=== PATIENT | male | born 1945 | race Caucasian/White ===

== ENCOUNTER 2016-09-14 08:57 | Outpatient (CLI) | payer MEDICARE | END 2016-09-14 08:58 | disposition home or self-care (01) | DX: M79.676 Pain in unspecified toe(s) (principal) ==

== ENCOUNTER 2017-03-01 15:23 | Outpatient (CLI) | payer MEDICARE ==
--- NOTE | 2017-03-02 15:34 | Ultrasound Report ---
BILATERAL LOWER EXTREMITY ARTERIAL DUPLEX: 03/01/2017 CLINICAL INDICATION: Peripheral vascular disease. TECHNIQUE: Real-time sonographic vascular imaging was performed by the switch cleaner through the lower extremities utilizing both color-flow and Doppler spectral analysis. Multiple sales representative consultant static images were saved for review. RIGHT SIDE SITE PSV WAVEFORM STEN CLAIMS ADJUSTOR 109 triphasic PSFA 104 biphasic MSFA 85 biphasic DSFA 82 biphasic PFA 73 biphasic POP 103 biphasic ANGEL 51 biphasic STATISTICAL MACHINE MECHANIC 71 biphasic PER 52 biphasic DPA 54 biphasic LEFT SIDE SITE PSV WAVEFORM STEN CLAIMS ADJUSTOR 98 biphasic PSFA 89 biphasic MSFA 89 biphasic DSFA 87 biphasic PFA 81 biphasic POP 75 biphasic ANGEL 50 biphasic STATISTICAL MACHINE MECHANIC 70 biphasic PER 60 biphasic DPA 49 biphasic FINDINGS RIGHT LEG: Waveforms are predominantly biphasic. There is no evidence of a focal velocity increase to suggest a hemodynamically significant stenosis. LEFT LEG: Waveforms are predominantly biphasic. There is no evidence of a focal velocity increase to suggest a hemodynamically significant arterial stenosis. IMPRESSION: NO EVIDENCE OF A HEMODYNAMICALLY SIGNIFICANT ARTERIAL STENOSIS IN EITHER LEG. MTDD
== END 2017-03-01 15:24 | disposition home or self-care (01) ==
LOC: DI 15:23
PROVIDERS: ATTEND Family Medicine
DX: I73.9 Peripheral vascular disease, unspecified (principal)
CPT/HCPCS: 72050; 93925

== ENCOUNTER 2017-03-01 15:29 | Outpatient (CLI) | payer MEDICARE ==
--- NOTE | 2017-03-02 09:42 | XRAY Report ---
COMPLETE CERVICAL SPINE: 03/01/2017 CLINICAL INDICATION: Left-sided pain. FINDINGS: AP, lateral, oblique, and odontoid views of the cervical spine demonstrate severe degenera tive disk and facet disease, with near complete osseous fusion of the C5-6 disk space and bulky osteo phyte at C6-7. There is left worse than right osseous neural foraminal narrowing, worst at C5-6. Ther e is no evidence of fracture or subluxation. The prevertebral soft tissues are unremarkable. IMPRESSION: DEGENERATIVE CHANGES, WITH LEFT WORSE THAN RIGHT OSSEOUS NEURAL FORAMINAL NARROWING. JOB #: [id number] EXT JOB #:[id number]
--- NOTE | 2017-03-02 11:15 | XRAY Report ---
THREE VIEW LEFT SHOULDER: 03/01/2017 CLINICAL INDICATION: Pain. FINDINGS: Internal and external rotational views and a scapular Y view of the left shoulder demonstr ate no evidence of fracture or dislocation. Mild degenerative changes are present. No radiopaque fore ign body is seen in the soft tissues. IMPRESSION: MILD DEGENERATIVE CHANGES. JOB #: [id number] EXT JOB #:[id number]
== END 2017-03-01 15:30 | disposition home or self-care (01) ==
LOC: DI 15:29
PROVIDERS: ATTEND Family Medicine
DX: M50.30 Other cervical disc degeneration, unspecified cervical region (principal); M47.892 Other spondylosis, cervical region; M19.012 Primary osteoarthritis, left shoulder
CPT/HCPCS: 72050

== ENCOUNTER 2018-03-24 14:39 | Emergency (ER) | payer MEDICARE ==
[2018-03-24 15:43] LABS: BASOPHILS # (AUTO) 0.1 10^3/uL (0.0-0.1); BASOPHILS % (AUTO) 1.1 %; EOSINOPHILS # (AUTO) 0.1 10^3/uL (0.0-0.7); EOSINOPHILS % (AUTO) 1.1 %; HGB - HEMOGLOBIN 15.3 g/dL (14.0-18.0); LYMPHOCYTES # (AUTO) 1.6 10^3/uL (1.5-3.5); LYMPHOCYTES % (AUTO) 29.1 %; MEAN CORPUSCULAR HEMOGLOBIN 29.5 pg (27.0-31.0); MEAN CORPUSCULAR VOLUME 86.9 fL (80.0-94.0); MEAN PLATELET VOLUME 10.5 fL (7.4-11.4); MONOCYTES # (AUTO) 0.5 10^3/uL (0.0-1.0); MONOCYTES % (AUTO) 8.3 %; NEUTROPHILS # (AUTO) 3.3 10^3/uL (1.5-6.6); NEUTROPHILS % (AUTO) 60.4 %; PLT - PLATELET COUNT 177 10^3/uL (130-450); RED BLOOD COUNT 5.17 10^6/uL (4.70-6.10); RED CELL DISTRIBUTION WIDTH 14.1 % (12.0-15.0); WHITE BLOOD COUNT 5.4 x10^3/uL (4.8-10.8)
[2018-03-24 16:02] LABS: ALBUMIN 4.2 g/dL (3.2-5.5); ALBUMIN/GLOBULIN RATIO 1.7 (1.0-2.2); BILIRUBIN,TOTAL 0.5 mg/dL (0.2-1.0); CALCIUM 9.1 mg/dL (8.5-10.3); TOTAL PROTEIN 6.7 g/dL (6.7-8.2)
--- NOTE | 2018-03-24 16:30 | ED Physician Documentation ---
PD HPI GI BLEED - Stated complaint Stated Complaint: BLOODY STOOL - Chief complaint Chief Complaint: Abd Pain - History obtained from History obtained from: Patient, Family (spouse) - History of Present Illness Timing - onset: Yesterday Timing - details: Still present Associated symptoms: Maroon stool Contributing factors: Aspirin use Similar symptoms before: Has not had sx before - Additional information Additional information: The patient is a 73-year-old male who presents with history of bloody stool that he first noticed yesterday, and has persisted today. Blood is mixed in with the stool. He denies abdominal pain, nausea or vomiting. He denies history of similar symptoms in the past. He does report that 3 years ago colonoscopy was attempted but was not able to be completed because of a "kinked lower colon." Family history is significant for colon cancer in his father at age 59. Review of Systems Constitutional: denies: Fever, Fatigue Cardiac: denies: Chest pain / pressure Respiratory: denies: Dyspnea, Cough GI: reports: Bloody / black stool. denies: Abdominal Pain, Nausea, Vomiting, Diarrhea : denies: Dysuria Skin: denies: Rash Musculoskeletal: denies: Back pain Neurologic: denies: Headache PD PAST MEDICAL HISTORY - Past Medical History Past Medical History: Yes Cardiovascular: Hypertension, High cholesterol, Arrhythmia Respiratory: None Endocrine/Autoimmune: None GI: GERD, Colon polyps : Benign prostate hypertrophy HEENT: Glaucoma, Other Psych: Depression Musculoskeletal: None Derm: None, Other - Past Surgical History Ortho: Other HEENT: Tonsil/Adenoidectomy, Other Derm: Skin cancer surgery - Present Medications Home Medications: Ambulatory Orders Medication Instructions Recorded Confirmed Bimatoprost [Lumigan] 1 drop EACHEYE DAILY 05/05/16 05/05/16 Dorzolamide 2% Ophth Drops 1 drops RIGHTEYE BID 05/05/16 05/05/16 [Trusopt 2% Ophth Drops] Finasteride 5 mg PO DAILY 05/05/16 05/05/16 Tamsulosin [Flomax] 0.4 mg PO DAILY 05/05/16 05/05/16 Gemfibrozil [Lopid] 600 mg PO 03/24/18 busPIRone [Buspar] 7.5 mg PO BID 03/24/18 03/24/18 - Allergies Allergies/Adverse Reactions: Allergies Allergy/AdvReac Type Severity Reaction Status Date / Time gluten Allergy Unknown Verified 03/24/18 14:45 succinylcholine chloride * Allergy Unknown Verified 03/24/18 14:45 [From Anectine] codeine AdvReac Itching Verified 03/24/18 14:45 - Social History Does the pt smoke?: No Smoking Status: Never smoker Does the pt drink ETOH?: Yes ETOH Use: Wine Does the pt have substance abuse?: No - Immunizations Immunizations are current?: Yes - POLST Patient has POLST: No PD ED PE NORMAL - Vitals Vital signs reviewed: Yes (hypertensive) - General General: Alert and oriented X 3, Well developed/nourished - HEENT HEENT: Atraumatic, Moist mucous membranes - Neck Neck: No adenopathy, No JVD - Cardiac Cardiac: RRR - Respiratory Respiratory: No respiratory distress, Clear bilaterally - Abdomen Abdomen: Normal bowel sounds, Soft, Non tender - Rectal Rectal: Other (Maroon, heme-positive stool.) - Back Back: No CVA TTP - Derm Derm: No rash - Extremities Extremities: No edema, No calf tenderness / cord - Neuro Neuro: Alert and oriented X 3, No motor deficit, Normal speech Results - Vitals Vitals: Vital Signs - 24 hr 03/24/18 03/24/18 14:42 16:53 Temperature 36.7 C 36.6 C Heart Rate 47 L 52 L Respiratory 16 18 Rate Blood Pressure 186/81 H 174/78 H O2 Saturation 99 99 Oxygen O2 Source Room air - Labs Labs: Laboratory Tests 03/24/18 03/24/18 15:32 15:32 WBC 5.4 RBC 5.17 Hgb 15.3 Hct 44.9 MCV 86.9 MCH 29.5 MCHC 34.0 RDW 14.1 Plt Count 177 MPV 10.5 Neut # (Auto) 3.3 Lymph # (Auto) 1.6 [place] # (Auto) 0.5 Eos # (Auto) 0.1 Baso # (Auto) 0.1 Absolute Nucleated RBC 0.00 Nucleated RBC % 0.1 Sodium 139 Potassium 3.8 Chloride 103 Carbon Dioxide 26 Anion Gap 10.0 BUN 19 Creatinine 1.0 Estimated GFR (MDRD) 73 L Glucose 103 H Calcium 9.1 Total Bilirubin 0.5 AST 19 ALT 18 Alkaline Phosphatase 53 Total Protein 6.7 Albumin 4.2 Globulin 2.5 Albumin/Globulin Ratio 1.7 Lipase 135 H PD MEDICAL DECISION MAKING - ED course Complexity details: reviewed results, re-evaluated patient, considered differential, d/w patient, d/w family, d/w fashion consultant sales ED course: The patient's presentation is significant for gastrointestinal hemorrhage. He is otherwise asymptomatic, and his hemoglobin and hematocrit are normal at 15.3 and 44.9. Platelet count is normal at 177,000. I discussed his condition with Dr. Anders, who agrees with urgent outpatient follow-up. While still in the emergency department, the patient's arrange for outpatient clinic follow-up appointment for next Tuesday. I discussed with the patient and his potentially worrisome signs or symptoms that should prompt reevaluation in the emergency department. He will discontinue the one baby aspirin daily that he has been taking. Departure - Departure Disposition: Home, Self Care Clinical Impression: GI hemorrhage Qualifiers: GI bleed type/associated pathology: melena Qualified Code(s): K92.1 - Melena Condition: Stable Instructions: ED Hematochezia Stable Follow-Up: [facility] Surgical Services [Provider Group] Comments: Avoid taking aspirin or any other blood thinner medication. Follow-up at the general surgery clinic on Tuesday. Call today to schedule an appointment. Return to the emergency department if you develop increasing rectal bleeding, increasing abdominal pain, lightheadedness, or otherwise worsening symptoms. Discharge Date/Time: 03/24/18 16:52
[2018-03-24 16:56] VITALS: BP 174/78
== END 2018-03-24 16:52 | disposition home or self-care (01) ==
LOC: ED 14:39
DX: K92.1 Melena (principal); I10 Essential (primary) hypertension; E78.00 Pure hypercholesterolemia, unspecified; Z80.0 Family history of malignant neoplasm of digestive organs
CPT/HCPCS: 36415; 80053; 83690; 85025; 99283; 99284

== ENCOUNTER 2018-04-06 10:08 | Day surgery (SDC) | payer MEDICARE ==
[2018-04-06] MEDS ORDERED: LACTATED RINGERS 1,000 ML IV ONE (10:41)
[2018-04-06] MEDS ORDERED: fentaNYL 250 MCG/5 ML VIAL IVP ONE (12:27)
[2018-04-06] MEDS ORDERED: MIDAZOLAM 2 MG/2 ML VIAL IVP ONE (12:27)
[2018-04-06 13:31] VITALS: BP 128/69
== END 2018-04-06 10:09 | disposition home or self-care (01) ==
LOC: SDS 10:08
PROVIDERS: ATTEND Internal Medicine Gastroenterology
PROC: 0DJD8ZZ Inspection of Lower Intestinal Tract, Via Natural or Artificial Opening Endoscopic (ICD-10-PCS; principal; 2018-04-06 11:15)
DX: K62.5 Hemorrhage of anus and rectum (principal); Z80.0 Family history of malignant neoplasm of digestive organs; K57.30 Diverticulosis of large intestine without perforation or abscess without bleeding; Z86.010 Personal history of colon polyps; F41.8 Other specified anxiety disorders; I10 Essential (primary) hypertension; E78.5 Hyperlipidemia, unspecified; K21.9 Gastro-esophageal reflux disease without esophagitis; H40.9 Unspecified glaucoma; K57.90 Diverticulosis of intestine, part unspecified, without perforation or abscess without bleeding; N40.1 Benign prostatic hyperplasia with lower urinary tract symptoms; Z79.82 Long term (current) use of aspirin; Z87.11 Personal history of peptic ulcer disease
CPT/HCPCS: 45378; 93005; J3010; J7120

== ENCOUNTER 2018-08-25 12:08 | Outpatient (CLI) | payer MEDICARE ==
--- NOTE | 2018-08-25 19:57 | MRI Report ---
Reason: RADICULOPATHY,CERVICAL REGION Procedure Date: 08/25/2018 Accession Number: [id number] / [id number] Procedure: MRI - Cervical Spine W/O CPT Code: FULL RESULT: EXAM: MRI CERVICAL SPINE WITHOUT CONTRAST EXAM DATE: 08/25/2018 12:41 PM. CLINICAL HISTORY: RADICULOPATHY,CERVICAL REGION. COMPARISONS: Cervical spine radiographs 03/01/2017. TECHNIQUE: Multiplanar, multisequence T1-weighted and fluid-sensitive sequences of the cervical spine without contrast. Other: None. FINDINGS: Neurologic Structures: The visualized posterior fossa structures are unremarkable. No signal abnormality in the visualized spinal cord. Alignment: Grade 1 anterolisthesis of C4 on C5 measures 2 mm. Anterolisthesis of C7 on T1 measures 3.5 mm. Bone Marrow: No fractures. No osseous lesions. There is Modic type I endplate degenerative change at C6-C7. Interspace Levels/Facets: C1-C2: Unremarkable. C2-C3: Severe left facet arthropathy causes mild left foraminal stenosis. No disk bulge or protrusion. No spinal canal stenosis. C3-C4: Shallow broad-based disk-osteophyte complex and severe left facet arthropathy causes moderate left and mild right foraminal stenosis. Partial effacement of the ventral CSF without deforming the cord. C4-C5: Shallow broad-based disk-osteophyte complex with severe right and mild left facet arthropathy results and partial effacement of the ventral CSF and mild bilateral foraminal stenosis. C5-C6: There is solid osseous bridging across the disk space. Broad-based disk-osteophyte complex effaces the ventral CSF and flattens the cord. The dorsal CSF space remains visible. Mild bilateral foraminal stenosis. C6-C7: Mild intervertebral disk height loss. Shallow broad-based disk-osteophyte complex causes mild spinal canal and bilateral foraminal stenosis. C7-T1: Mild intervertebral disk height loss. Shallow broad-based disk-osteophyte complex with severe bilateral facet arthropathy and grade 1 anterolisthesis results in mild spinal canal and bilateral foraminal stenosis. Musculature: Normal. No edema or fatty atrophy. Other: The paravertebral and prevertebral soft tissues are normal. IMPRESSION: 1. At C5-C6, a broad-based disk-osteophyte complex causes moderate spinal canal and mild bilateral foraminal stenosis, with disk-osteophyte effacing the ventral CSF and flattening the cord. 2. Mild spinal canal and bilateral foraminal stenosis at C4-C5, C6-C7, and C7-T1 secondary to shallow broad-based disk-osteophyte complexes. 3. Severe left facet arthropathy at C2-C3 causes mild left foraminal stenosis. 4. Severe right facet arthropathy at C4-C5. RADIA
== END 2018-08-25 12:09 | disposition home or self-care (01) ==
LOC: DI 12:08
PROVIDERS: ATTEND Family Medicine
DX: M54.12 Radiculopathy, cervical region (principal); M48.02 Spinal stenosis, cervical region; M25.78 Osteophyte, vertebrae
CPT/HCPCS: 72141

== ENCOUNTER 2019-07-08 12:37 | Outpatient (CLI) | payer MEDICARE | END 2019-07-08 12:38 | disposition critical access hospital (66) | LOC: EMS 12:37 | PROVIDERS: ATTEND Surgery | DX: R55 Syncope and collapse (principal) | CPT/HCPCS: A0425; A0427 ==

== ENCOUNTER 2019-07-08 12:52 | Emergency (ER) | payer MEDICARE ==
[2019-07-08] MEDS ORDERED: SODIUM CHLORIDE 0.9% 1,000 ML IV ONE (12:58)
--- NOTE | 2019-07-08 13:02 | ED Physician Documentation ---
PD HPI SYNCOPE - Stated complaint Stated Complaint: NEAR SYNCOPE - History obtained from History obtained from: Patient (74-year-old gentleman with history of low pulse but no history of syncope. Had it worked up a couple of years ago by construction foreman who felt no pacemaker was necessary. Today about 40 minutes after taking 50 mg of sildenafil he took a hot shower and then nearly passed out. He injured his left ankle. No other injuries. He did not have complete syncope. There is no associated chest pain, shortness of breath, or headache. He feels fine now.) Review of Systems Ten Systems: 10 systems reviewed and negative Constitutional: reports: Reviewed and negative Cardiac: denies: Chest pain / pressure, Palpitations, Pedal edema Respiratory: denies: Dyspnea, Cough, Hemoptysis PD PAST MEDICAL HISTORY - Past Medical History Cardiovascular: Hypertension, High cholesterol, Arrhythmia Respiratory: None Endocrine/Autoimmune: None GI: GERD, Colon polyps : Benign prostate hypertrophy HEENT: Glaucoma, Other Psych: Depression Musculoskeletal: None Derm: None, Other - Past Surgical History Ortho: Other HEENT: Tonsil/Adenoidectomy, Other Derm: Skin cancer surgery - Present Medications Home Medications: Ambulatory Orders Medication Instructions Recorded Confirmed Bimatoprost [Lumigan] 1 drop EACHEYE DAILY 05/05/16 05/05/16 Dorzolamide 2% Ophth Drops 1 drops RIGHTEYE BID 05/05/16 05/05/16 [Trusopt 2% Ophth Drops] Finasteride 5 mg PO DAILY 05/05/16 05/05/16 Tamsulosin [Flomax] 0.4 mg PO DAILY 05/05/16 05/05/16 Gemfibrozil [Lopid] 600 mg PO 03/24/18 busPIRone [Buspar] 7.5 mg PO BID 03/24/18 03/24/18 Aspirin [Adult Aspirin Regimen] 1 DAILY 04/05/18 - Allergies Allergies/Adverse Reactions: Allergies Allergy/AdvReac Type Severity Reaction Status Date / Time gluten Allergy Unknown Verified 07/08/19 12:57 succinylcholine chloride * Allergy Unknown Verified 07/08/19 12:57 [From Anectine] codeine AdvReac Itching Verified 07/08/19 12:57 - Social History Does the pt smoke?: No Smoking Status: Never smoker Does the pt drink ETOH?: Yes Does the pt have substance abuse?: No - Immunizations Immunizations are current?: Yes - POLST Patient has POLST: No PD ED PE NORMAL - Vitals Vital signs reviewed: Yes - General General: Alert and oriented X 3, No acute distress - HEENT HEENT: PERRL, EOMI - Neck Neck: Supple, no meningeal sign, No bony TTP - Cardiac Cardiac: RRR, No murmur - Respiratory Respiratory: No respiratory distress, Clear bilaterally - Abdomen Abdomen: Non tender - Back Back: No CVA TTP, No spinal TTP - Derm Derm: Normal color, Warm and dry - Extremities Extremities: Other (There is an abrasion over the left fifth metatarsal laterally, there is no corresponding bony pain or limited range of motion there.) - Neuro Neuro: Alert and oriented X 3, Normal speech Results - Vitals Vitals: Vital Signs - 24 hr 07/08/19 07/08/19 12:57 13:03 Temperature 36.5 C Heart Rate 59 L 57 L Respiratory 14 20 Rate Blood Pressure 180/54 H 181/84 H O2 Saturation 96 98 Oxygen O2 Source Room air - EKG (time done) 1259 Rate: Rate (enter#) (51) Rhythm: Sinus bradycardia (With PACs) [place]: Normal Intervals: Normal CA QRS: Normal Ischemia: Normal ST segments Computer interpretation: Agree with computer - Labs Labs: Laboratory Tests 07/08/19 07/08/19 13:05 13:05 WBC 5.1 RBC 5.22 Hgb 15.1 Hct 46.3 MCV 88.7 MCH 28.9 MCHC 32.6 RDW 13.1 Plt Count 160 MPV 12.6 H Neut # (Auto) 3.3 Lymph # (Auto) 1.3 L [place] # (Auto) 0.4 Eos # (Auto) 0.1 Baso # (Auto) 0.0 Absolute Nucleated RBC 0.00 Nucleated RBC % 0.0 Sodium 139 Potassium 4.2 Chloride 103 Carbon Dioxide 28 Anion Gap 8.0 BUN 22 H Creatinine 1.4 H Estimated GFR (MDRD) 50 L Glucose 134 H Calcium 9.1 Total Bilirubin 0.8 AST 21 ALT 21 Alkaline Phosphatase 41 L Total Protein 6.7 Albumin 4.0 Globulin 2.7 Albumin/Globulin Ratio 1.5 Lipase 34 PD MEDICAL DECISION MAKING - ED course ED course: 74-year-old gentleman with chronic bradycardia and "irregular heartbeat" which probably corresponds to the PACs seen here. This near syncopal event is probably a combination of taking a vasodilator, sildenafil, and getting in a hot shower. Otherwise the history seems fairly low risk. Departure - Departure Disposition: 01 Home, Self Care Clinical Impression: Near syncope, Dehydration Condition: Good Record reviewed to determine appropriate education?: Yes Instructions: ED Dehydration, ED Near Syncope Vasovagal Comments: Drink plenty of water, return for new or worsening symptoms. Your physician may want to recheck the BUN and creatinine values which were 22 and 1.4 respectively today.
[2019-07-08 13:11] VITALS: BP 181/84
[2019-07-08 13:15] LABS: BASOPHILS % (AUTO) 0.6 %; EOSINOPHILS # (AUTO) 0.1 10^3/uL (0.0-0.7); HGB - HEMOGLOBIN 15.1 g/dL (14.0-18.0); LYMPHOCYTES # (AUTO) 1.3 10^3/uL (1.5-3.5); LYMPHOCYTES % (AUTO) 25.8 %; MEAN CORPUSCULAR HEMOGLOBIN 28.9 pg (27.0-31.0); MEAN CORPUSCULAR HGB CONC 32.6 g/dL (32.0-36.0); MEAN CORPUSCULAR VOLUME 88.7 fL (80.0-94.0); MEAN PLATELET VOLUME 12.6 fL (7.4-11.4); MONOCYTES # (AUTO) 0.4 10^3/uL (0.0-1.0); MONOCYTES % (AUTO) 7.4 %; NEUTROPHILS # (AUTO) 3.3 10^3/uL (1.5-6.6); PLT - PLATELET COUNT 160 10^3/uL (130-450); RED BLOOD COUNT 5.22 10^6/uL (4.70-6.10); RED CELL DISTRIBUTION WIDTH 13.1 % (12.0-15.0); WHITE BLOOD COUNT 5.1 x10^3/uL (4.8-10.8)
[2019-07-08] MEDS ORDERED: TETANUS/DIPHTHERIA/PERTUSSIS 0.5 ML SYRINGE IM ONE (13:16)
[2019-07-08 13:23] LABS: ALBUMIN/GLOBULIN RATIO 1.5 (1.0-2.2); BILIRUBIN,TOTAL 0.8 mg/dL (0.2-1.0); CALCIUM 9.1 mg/dL (8.5-10.3); CREATININE 1.4 mg/dL (0.6-1.2); TOTAL PROTEIN 6.7 g/dL (6.7-8.2)
== END 2019-07-08 13:55 | disposition home or self-care (01) ==
LOC: EDUNIT# → ED 12:52
DX: R55 Syncope and collapse (principal); E86.0 Dehydration; R00.1 Bradycardia, unspecified; I49.1 Atrial premature depolarization; S90.512A Abrasion, left ankle, initial encounter; W18.2XXA Fall in (into) shower or empty bathtub, initial encounter; Y93.E1 Activity, personal bathing and showering; Z23 Encounter for immunization; I10 Essential (primary) hypertension; Z79.82 Long term (current) use of aspirin
CPT/HCPCS: 36415; 80053; 83690; 85025; 90471; 93005; 99284

== ENCOUNTER 2019-07-19 13:13 | Outpatient (CLI) | payer MEDICARE ==
[2019-07-19 13:42] LABS: CALCIUM 9.3 mg/dL (8.5-10.3); CREATININE 1.4 mg/dL (0.6-1.2)
[2019-07-19] MEDS ORDERED: GADOBUTROL 7.5 MMOL/7.5 ML VIAL ONE (13:58)
[2019-07-19] MEDS ORDERED: GADOBUTROL 7.5 MMOL/7.5 ML VIAL IVP ONE (14:19)
--- NOTE | 2019-07-19 15:55 | MRI Report ---
Reason: DIZZINESS, RECENT SYNCOPAL EPISODE Procedure Date: 07/19/2019 Accession Number: [id number] / [id number] Procedure: MRI - Brain W/WO CPT Code: Final Report FULL RESULT: EXAM: MRI BRAIN WITHOUT AND WITH CONTRAST EXAM DATE: 07/19/2019 03:16 PM. CLINICAL HISTORY: Reported history of recent syncopal episode as well as dizziness for many years. COMPARISON: None. TECHNIQUE: Multiplanar, multisequence T1-weighted and fluid-sensitive MR sequences of the brain were performed before and after administration of intravenous contrast. Sequences optimized for brain and IAC evaluation. Other: None. IV Contrast: 7.5 mL Gadavist. FINDINGS: Brain Volume: Mild diffuse probably age-related volume loss/atrophy. Parenchyma: No restricted diffusion to suggest acute or recent ischemic infarct. No cerebral hemorrhage, mass-effect, midline shift or abnormal subdural fluid collection. No midline development of cerebral anomaly or Chiari malformation. No intracranial enhancing or space-occupying mass. No abnormal brain parenchymal enhancement. Mild to moderate patchy and confluent multifocal bilateral cerebral white matter T2 hyperintense signal changes without enhancement. These findings are nonspecific but likely attributable to aging and chronic small vessel ischemic white matter disease. Ventricles/Cisterns: No hydrocephalus. Orbits: Previous lens extractions. Right side scleral buckle. Sella [place]: No space-occupying lesion. Probable partially empty sella. IAC: Symmetric and unremarkable. No evidence for vestibular schwannoma. Unremarkable contours of the canalicular and cisternal segments of the 7th and 8th cranial nerves. No evidence for superior semicircular canal dehiscence. Vasculature: The major arterial skull base flow voids are present. The dural sinuses are patent and enhance normally. Sinuses: No acute sinus disease. Bones: No focal pathologic appearing marrow signal changes. Other: None. IMPRESSION: 1. No acute intracranial abnormality or enhancing mass. 2. Unremarkable appearance of the internal auditory canals. No evidence for abnormal enhancement or tumor. 3. 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 RADIA
== END 2019-07-19 13:14 | disposition home or self-care (01) ==
LOC: DI 13:13
PROVIDERS: ATTEND Physician Assistant Medical
DX: R90.82 White matter disease, unspecified (principal); R42 Dizziness and giddiness; R55 Syncope and collapse; R00.1 Bradycardia, unspecified
CPT/HCPCS: 36415; 70553; 80048; A9585

== ENCOUNTER 2020-05-20 14:31 | Outpatient (CLI) | payer MEDICARE ==
--- NOTE | 2020-05-20 16:39 | XRAY Report ---
PROCEDURE: Lumbar Spine 2 View INDICATIONS: LOW BACK PAIN TECHNIQUE: 8 views of the lumbar spine were acquired. COMPARISON: None. FINDINGS: Bones: 5 [id number] vertebrae are present. There is normal bony alignment. No acute vertebral body compression fractures. No suspicious bony lesions. Multilevel lumbar spondylitic changes and a ssociated mid and lower lumbar facet arthrosis. There are degenerative endplate changes and anterior endplate osteophyte formation. Soft tissues: Overlying bowel gas pattern is normal. No suspicious soft tissue calcifications. The re are vascular calcifications. IMPRESSION: Lumbar spine without acute radiographic abnormalities. Multilevel lumbar spondylosis wit h associated mid and lower lumbar facet arthropathy. Reviewed by: Maicol Goodman MD on 05/20/2020 4:38 PM PST Approved by: Maicol Goodman MD on 05/20/2020 4:38 PM PST Station ID: [id number]
== END 2020-05-20 14:32 | disposition home or self-care (01) ==
LOC: DI 14:31
PROVIDERS: ATTEND Internal Medicine
DX: M47.816 Spondylosis without myelopathy or radiculopathy, lumbar region (principal)

== ENCOUNTER 2021-06-02 08:00 | Outpatient (CLI) | payer MEDICARE ==
[2021-06-02 17:32] LABS: ALBUMIN 4.1 g/dL (3.2-5.5); ALBUMIN/GLOBULIN RATIO 1.7 (1.0-2.2); ALKALINE PHOSPHATASE 50 IU/L (42-121); ALT ALANINE AMINOTRANSFERASE 24 IU/L (10-60); AST ASPARTATE AMINOTRANSFERASE 21 IU/L (10-42); BILIRUBIN,TOTAL 0.8 mg/dL (0.2-1.0); BUN - BLOOD UREA NITROGEN 14 mg/dL (6-20); CALCIUM 9.2 mg/dL (8.5-10.3); CARBON DIOXIDE - CO2 26 mmol/L (21-32); CHLORIDE 104 mmol/L (101-111); CHOLESTEROL 240 mg/dL; CREATININE 1.3 mg/dL (0.6-1.2); GFR - MDRD 54 (>89); GLUCOSE 102 mg/dL (70-100); HDL CHOLESTEROL 48 mg/dL; LDL CHOLESTEROL,CALCULATED 173 mg/dL; LDL/HDL RATIO 3.6 (<3.6); POTASSIUM 4.4 mmol/L (3.5-5.0); SODIUM 140 mmol/L (135-145); TOTAL PROTEIN 6.5 g/dL (6.7-8.2); TRIGLYCERIDES 94 mg/dL; VLDL CHOLESTEROL 19 mg/dL
[2021-06-02 17:39] LABS: PSA TOTAL 0.389 ng/mL (0.000-2.000)
[2021-06-02 17:42] LABS: BASOPHILS % (AUTO) 0.8 %; EOSINOPHILS # (AUTO) 0.1 10^3/uL (0.0-0.7); EOSINOPHILS % (AUTO) 1.7 %; HGB - HEMOGLOBIN 16.5 g/dL (14.0-18.0); LYMPHOCYTES # (AUTO) 1.5 10^3/uL (1.5-3.5); LYMPHOCYTES % (AUTO) 28.6 %; MEAN CORPUSCULAR HGB CONC 32.4 g/dL (32.0-36.0); MEAN CORPUSCULAR VOLUME 89.6 fL (80.0-94.0); MONOCYTES # (AUTO) 0.4 10^3/uL (0.0-1.0); MONOCYTES % (AUTO) 8.3 %; NEUTROPHILS # (AUTO) 3.1 10^3/uL (1.5-6.6); NEUTROPHILS % (AUTO) 60.2 %; RED BLOOD COUNT 5.69 10^6/uL (4.70-6.10); RED CELL DISTRIBUTION WIDTH 13.8 % (12.0-15.0); WHITE BLOOD COUNT 5.2 x10^3/uL (4.8-10.8)
[2021-06-02 17:44] LABS: SLIDE REVIEW? Indicated
[2021-06-02 19:12] LABS: MEAN PLATELET VOLUME 12.8 fL (7.4-11.4)
[2021-06-02 19:13] LABS: PLATELET MORPHOLOGY 2+ GIANT PLATELETS (NORMAL); PLT - PLATELET COUNT 151 10^3/uL (130-450)
[2021-06-02 19:14] LABS: PLATELET ESTIMATE, MANUAL NORMAL (130-450,000) (NORMAL)
== END 2021-06-02 23:59 ==
LOC: LAB.R 08:00
PROVIDERS: ATTEND Internal Medicine
DX: Z00.00 Encounter for general adult medical examination without abnormal findings (principal); N40.0 Benign prostatic hyperplasia without lower urinary tract symptoms; F32.A Depression, unspecified; Z80.0 Family history of malignant neoplasm of digestive organs; M67.40 Ganglion, unspecified site; H40.9 Unspecified glaucoma; E78.5 Hyperlipidemia, unspecified; M71.20 Synovial cyst of popliteal space [Baker], unspecified knee
CPT/HCPCS: 80053; 80061; 82306; 83721; 84153; 84443; 85025

== ENCOUNTER 2021-07-23 10:04 | Outpatient (CLI) | payer MEDICARE ==
--- NOTE | 2021-07-23 14:47 | XRAY Report ---
PROCEDURE: Finger(s) LT INDICATIONS: LEFT INDEX FINGER PAIN TECHNIQUE: AP hand, 3 views of the second finger(s) acquired. COMPARISON: None. FINDINGS: Bones: No fractures or dislocations. . There is a corticated ossicle in the volar aspect of the sec ond distal interphalangeal joint. Severe second distal interphalangeal joint degeneration with large periarticular osteophytes and associated soft tissue swelling. There is bony erosion at the base of t he second distal phalanx. Mild degenerative joint disease is noted at the second proximal interphalan geal joint. Soft tissues: There are periarticular soft tissue calcifications at the second DIP. IMPRESSION: 1. Severe second distal interphalangeal joint degeneration with associated bony erosion and soft tiss ue swelling suggesting inflammatory arthritis or septic arthritis. Recommend clinical correlation. 2. There is a corticated ossicle in the volar aspect of the second distal interphalangeal joint, like ly sequelae of old injury. Recommend clinical correlation. 3. Mild degenerative joint disease of the second proximal interphalangeal joint. Reviewed by: Bienvenido Mejia MD on 07/23/2021 2:45 PM PST Approved by: Bienvenido Mejia MD on 07/23/2021 2:45 PM PST Station ID: [id number]
== END 2021-07-23 10:05 | disposition home or self-care (01) ==
LOC: DI.WOS 10:04
PROVIDERS: ATTEND Orthopaedic Surgery
DX: M19.042 Primary osteoarthritis, left hand (principal)

== ENCOUNTER 2022-06-03 08:00 | Outpatient (CLI) | payer MEDICARE ==
[2022-06-03 16:26] LABS: BASOPHILS % (AUTO) 0.7 %; EOSINOPHILS # (AUTO) 0.1 10^3/uL (0.0-0.7); EOSINOPHILS % (AUTO) 1.4 %; HGB - HEMOGLOBIN 16.8 g/dL (14.0-18.0); LYMPHOCYTES # (AUTO) 1.7 10^3/uL (1.5-3.5); LYMPHOCYTES % (AUTO) 29.9 %; MEAN CORPUSCULAR HEMOGLOBIN 28.2 pg (27.0-31.0); MEAN CORPUSCULAR HGB CONC 32.3 g/dL (32.0-36.0); MEAN CORPUSCULAR VOLUME 87.2 fL (80.0-94.0); MONOCYTES # (AUTO) 0.5 10^3/uL (0.0-1.0); MONOCYTES % (AUTO) 8.9 %; NEUTROPHILS # (AUTO) 3.3 10^3/uL (1.5-6.6); NEUTROPHILS % (AUTO) 58.9 %; RED BLOOD COUNT 5.96 10^6/uL (4.70-6.10); RED CELL DISTRIBUTION WIDTH 13.7 % (12.0-15.0); WHITE BLOOD COUNT 5.5 x10^3/uL (4.8-10.8)
[2022-06-03 16:41] LABS: ALBUMIN 4.7 g/dL (3.2-5.5); ALBUMIN/GLOBULIN RATIO 1.8 (1.0-2.2); ALKALINE PHOSPHATASE 45 IU/L (42-121); ALT ALANINE AMINOTRANSFERASE 24 IU/L (10-60); AST ASPARTATE AMINOTRANSFERASE 21 IU/L (10-42); BILIRUBIN,TOTAL 0.7 mg/dL (0.2-1.0); BUN - BLOOD UREA NITROGEN 19 mg/dL (6-20); CALCIUM 8.9 mg/dL (8.5-10.3); CARBON DIOXIDE - CO2 27 mmol/L (21-32); CHLORIDE 101 mmol/L (101-111); CHOL/HDL RATIO 5.6 (<5.0); CHOLESTEROL 263 mg/dL; CREATININE 1.2 mg/dL (0.6-1.2); GFR - MDRD 59 (>89); GLUCOSE 109 mg/dL (70-100); HDL CHOLESTEROL 47 mg/dL; LDL CHOLESTEROL,CALCULATED 195 mg/dL; LDL/HDL RATIO 4.1 (<3.6); SODIUM 138 mmol/L (135-145); TOTAL PROTEIN 7.3 g/dL (6.7-8.2); TRIGLYCERIDES 105 mg/dL; VLDL CHOLESTEROL 21 mg/dL
[2022-06-03 16:45] LABS: PLATELET ESTIMATE, MANUAL DECREASED (<130,000) (NORMAL); PLATELET MORPHOLOGY PLATELET CLUMPING (NORMAL); PSA TOTAL 0.34 ng/mL (0.000-2.000); SLIDE REVIEW? Indicated
[2022-06-03 21:41] LABS: ESTIMATED AVERAGE GLUCOSE 114 mg/dL (70-100); HEMOGLOBIN A1c% 5.6 % (4.27-6.07)
== END 2022-06-03 23:59 | disposition home or self-care (01) ==
LOC: LAB.R 08:00
PROVIDERS: ATTEND Internal Medicine
DX: Z00.00 Encounter for general adult medical examination without abnormal findings (principal); N40.0 Benign prostatic hyperplasia without lower urinary tract symptoms; R29.6 Repeated falls; Z80.0 Family history of malignant neoplasm of digestive organs; Z86.010 Personal history of colon polyps; E78.5 Hyperlipidemia, unspecified; G43.B0 Ophthalmoplegic migraine, not intractable; R00.2 Palpitations; I49.1 Atrial premature depolarization; Z79.899 Other long term (current) drug therapy
CPT/HCPCS: 80053; 80061; 82306; 83036; 83721; 84153; 84443; 85025

== ENCOUNTER 2022-10-27 09:11 | Outpatient (CLI) | payer MEDICARE ==
--- NOTE | 2022-10-27 14:19 | Ultrasound Report ---
PROCEDURE: Head or Neck Soft Tissue INDICATIONS: MASS OF NECK TECHNIQUE: Real-time scanning was performed of the thyroid gland, with image documentation. COMPARISON: None FINDINGS: Multiple grayscale and color Doppler images over the palpable area of patient concern localizing to t he lateral right neck were acquired. No suspicious mass, fluid collection, or adenopathy in the regio n of palpable concern. Incidental note of normal-appearing cervical chain lymph nodes. IMPRESSION: No sonographic abnormalities identified over the palpable area of patient concern localiz ing to the lateral right neck. Incidental note of normal cervical chain lymph nodes. No suspicious ma ss or adenopathy identified elsewhere. Reviewed by: Maicol Goodman MD on 10/27/2022 2:17 PM PDT Approved by: Maicol Goodman MD on 10/27/2022 2:17 PM PDT Station ID: [id number]
== END 2022-10-27 09:12 | disposition home or self-care (01) ==
LOC: DI 09:11
PROVIDERS: ATTEND Internal Medicine
DX: R59.0 Localized enlarged lymph nodes (principal)

== ENCOUNTER 2022-11-05 11:53 | Outpatient (CLI) | payer MEDICARE ==
[2022-11-05 12:17] LABS: CREATININE 1.2 mg/dL (0.6-1.2)
[2022-11-05] MEDS ORDERED: iohexoL-300 100 ML VIAL ONE (12:43)
[2022-11-05] MEDS ORDERED: iohexoL-300 100 ML VIAL IVP ONE (13:01)
--- NOTE | 2022-11-05 13:58 | CT Report ---
PROCEDURE: SOFT TISSUE NECK W INDICATIONS: MASS OF NECK CONTRAST: 100ml omni 300 TECHNIQUE: After the administration of intravenous contrast, 3.0 mm axial sections acquired from the sella to th e aortic arch. Additional oblique axial 3.0 mm sections acquired through the pharynx. 3 mm thick co salvatore reformats were generated. For radiation dose reduction, the following was used: automated exp osure control, adjustment of mA and/or kV according to patient size. COMPARISON: None. FINDINGS: Image quality: Excellent. Lymph nodes: No enlarged lymph nodes seen throughout the neck. Vessels: Visualized vasculature appears patent. Neck spaces: The oropharynx, nasopharynx, and pharynx demonstrate no mucosal lesions. The vocal cor ds, false vocal cords, pyriform sinuses, epiglottis, vallecula, and tongue base all appear normal. E xtramucosal spaces appear unremarkable. Glands: The parotid and submandibular glands appear normal. The thyroid is normal in size and there are no incidental findings. Miscellaneous: Visualized brain normal. Bilateral intraocular lens replacement and ocular scleral b anding noted. Lung apices appear clear. Superficial soft tissues appear normal. Bones: No suspicious bony lesions. Visualized sinuses and mastoids appear unremarkable. Degenerati ve disc disease and arthropathy noted particularly in the lower cervical spine. Moderate central sten osis C5-6. IMPRESSION: No evidence of lymphadenopathy or mass lesion. Degenerative disc disease and arthropathy in the cervical spine with moderate central stenosis C5-6. No lytic or blastic lesion. Reviewed by: Saqib Abraham MD on 11/05/2022 12:57 PM KEVIN Approved by: Saqib Abraham MD on 11/05/2022 12:57 PM AKDT Station ID: [id number]
== END 2022-11-05 11:54 | disposition home or self-care (01) ==
LOC: LAB 11:53
PROVIDERS: ATTEND Internal Medicine
DX: R22.1 Localized swelling, mass and lump, neck (principal); Z79.899 Other long term (current) drug therapy; M47.812 Spondylosis without myelopathy or radiculopathy, cervical region; M50.30 Other cervical disc degeneration, unspecified cervical region; M48.02 Spinal stenosis, cervical region
CPT/HCPCS: 36415; 70491; 82565; Q9967

== ENCOUNTER 2023-10-05 14:41 | Outpatient (CLI) | payer MEDICARE ==
--- NOTE | 2023-10-05 19:17 | Ultrasound Report ---
PROCEDURE: Soft Tissue Head or Neck INDICATIONS: NECK MASS TECHNIQUE: Soft tissue ultrasound of the right neck was obtained at the area of concern COMPARISON: 10/27/2022 FINDINGS: At the area of concern, there is a small subcutaneous lymph node measuring 0.8 x 0.3 cm with preserve d fatty cristhian and appropriate vascularity, unchanged from the prior exam IMPRESSION: Unchanged normal subcutaneous lymph node in the right neck. No adenopathy Reviewed by: Saqib Abraham MD on 10/05/2023 6:16 PM AKLIBIA Approved by: Saqib Abraham MD on 10/05/2023 6:16 PM AKLIBIA Station ID: [id number]
== END 2023-10-05 14:42 | disposition home or self-care (01) ==
LOC: DI 14:41
PROVIDERS: ATTEND Internal Medicine
DX: R22.1 Localized swelling, mass and lump, neck (principal); M25.511 Pain in right shoulder

== ENCOUNTER 2023-10-05 14:44 | Outpatient (CLI) | payer MEDICARE ==
--- NOTE | 2023-10-05 17:47 | XRAY Report ---
Shoulder 2+V RT HISTORY: 78 years of age, SHOULDER PAIN TECHNIQUE: Shoulder 2+V RT COMPARISON: None. FINDINGS/IMPRESSION: No acute fracture or dislocation. Joint spaces are well maintained. Mild downsloping of the acromion. Small ossification about the lateral aspect of the humeral head, representing prior injury. Reviewed by: Lisa Hagen MD on 10/05/2023 5:46 PM PDT Approved by: Lisa Hagen MD on 10/05/2023 5:46 PM PDT Station ID: [id number]
== END 2023-10-05 14:45 | disposition home or self-care (01) ==
LOC: DI 14:44
PROVIDERS: ATTEND Internal Medicine
DX: M25.511 Pain in right shoulder (principal)

== ENCOUNTER 2023-10-28 07:01 | Day surgery (SDC) | payer MEDICARE ==
[2023-10-28] MEDS: LACTATED RINGERS 1,000 ML IV ONE ×2 (07:30→09:15)
--- NOTE | 2023-10-28 07:52 | ANESTHESIA ---
Pre-Anesthesia VS, & Labs - Diagnosis SCREENING/HX OF DIVERTICULOSIS - Procedure COLONOSCOPY Vital Signs: Temp Pulse Resp BP Pulse Ox O2 Flow Rate 36.2 C L 62 18 187/91 H 97 10/28/23 07:20 10/28/23 07:20 10/28/23 07:20 10/28/23 07:20 10/28/23 07:20 Height: 5 ft 9 in Weight (kg): 77.1 kg Body Mass Index: 25.1 BMI Classification: Overweight - NPO >8 hours Last Fluid Intake: 0600 - Lab Results Lab results reviewed: Yes Home Medications and Allergies Home Medications: Ambulatory Orders Glucosamine Sulfate Dipot Chlr [Glucosamine Sulfate] 1,000 mg PO DAILY 10/27/23 Sildenafil Citrate [Viagra] 25 mg PO DAILY 10/27/23 Bimatoprost [Lumigan] 1 drop EACHEYE DAILY 05/05/16 Dorzolamide 2% Ophth Drops [Trusopt 2% Ophth Drops] 1 drops RIGHTEYE BID 05/05/16 Finasteride 5 mg PO DAILY 05/05/16 Tamsulosin [Flomax] 0.4 mg PO DAILY 05/05/16 Gemfibrozil [Lopid] 600 mg PO 03/24/18 busPIRone [Buspar] 7.5 mg PO BID 03/24/18 Glucosamine Sulfate Dipot Chlr [Glucosamine Sulfate] 1,000 mg PO DAILY 10/27/23 Sildenafil Citrate [Viagra] 25 mg PO DAILY 10/27/23 Allergies/Adverse Reactions: Allergies Allergy/AdvReac Type Severity Reaction Status Date / Time gluten Allergy Unknown Verified 07/08/19 12:57 succinylcholine chloride * Allergy Unknown Verified 07/08/19 12:57 [From Anectine] codeine AdvReac Itching Verified 07/08/19 12:57 Anes History & Medical History - Anesthetic History Anesthesia Complications: reports: No previous complications (REPORTS SUX ALLERGY; ACTUALLY HE SAID IT WAS HIS SISTER, WHO STOPPED BREATHING; DENIES HISTORY OF TRUYE ALLERGIC REACTION , OR FAMILY HX OF MH) Family history of Anesthesia Complications: Reports ( LAURI) - Medical History Cardiovascular: reports: Hypertension (NO MEDS; 201/90 THIS AM), High cholesterol, Arrhythmia Pulmonary: reports: None Gastrointestinal: reports: GERD, Colon polyps Urinary: reports: Benign prostate hypertrophy Musculoskeletal: reports: None Endocrine/Autoimmune: reports: None Skin: reports: None, Other Smoking Status: Never smoker Psychosocial: reports: No issues indicated - Surgical History Eyes Ears Nose Throat (EENT): reports: Tonsil/Adenoidectomy, Other Orthopedic: reports: Other Dermatologic: reports: Skin cancer surgery Results - EKG Results EKG Comparison: Reviewed EKG - Echo Results Echo Results: Report reviewed Exam General: Alert, Oriented x3 Dental: WNL Mouth Openin Fingerbreadth Neck Mobility: Reduced Mallampati classification: II Thyromental Distance: 4-6 cm Plan Anesthesia Type: Total IV Consent for Procedure(s) Verified and Reviewed: Yes Code Status: Attempt Resuscitation ASA classification: 2-Mild systemic disease Is this case an emergency?: No
[2023-10-28] MEDS ORDERED: PROPOFOL 500 MG/50 ML 500 MG/50 ML VIAL ONE (08:14)
[2023-10-28] MEDS ORDERED: LIDOCAINE-MPF 2% 5 ML VIAL ONE (08:14)
[2023-10-28] MEDS ORDERED: ePHEDrine 50 MG/ML VIAL IVP ONE (09:01)
[2023-10-28] MEDS ORDERED: PROPOFOL 200 MG/20 ML VIAL IVP ONE (09:09)
[2023-10-28 09:31] VITALS: O2SAT 98
[2023-10-28 10:00] VITALS: BP 150/74
--- NOTE | 2023-10-28 10:01 | ANESTHESIA POST OP EVALUATION ---
Anesthesia Post Eval - Post Anesthesia Eval Vitals: Last Vital Signs Temp 36.3 C L 10/28/23 09:45 Pulse 55 L 10/28/23 09:45 Resp 16 10/28/23 09:45 BP 150/74 H 10/28/23 09:45 Pulse Ox 98 10/28/23 09:45 O2 Flow Rate CV Function Including HR & BP: Stable Pain Control: Satisfactory Nausea & Vomiting: Negative Mental Status: Baseline Respiratory Status: Airway Patent Hydration Status: Satisfactory Anesthesia Complications: None
== END 2023-10-28 07:02 | disposition home or self-care (01) ==
LOC: SDS 07:01
PROVIDERS: ATTEND Surgery
PROC: 0DBK8ZZ Excision of Ascending Colon, Via Natural or Artificial Opening Endoscopic (ICD-10-PCS; principal; 2023-10-28 08:30)
DX: Z12.11 Encounter for screening for malignant neoplasm of colon (principal); D12.2 Benign neoplasm of ascending colon; K57.30 Diverticulosis of large intestine without perforation or abscess without bleeding; I10 Essential (primary) hypertension; Z80.0 Family history of malignant neoplasm of digestive organs
CPT/HCPCS: 45380; 45385; J7120